=== PATIENT | female | born 1970 | race Caucasian/White ===

== ENCOUNTER 2017-02-04 23:17 | Inpatient (IN) | payer BC ==
--- NOTE | ~2017-02-04 | DS ---
Discharge Summary [facility] [address] [place]. [address] NAME: DANN TOLLIVER : 68 STATUS : DIS IN PAT#: [id number] AGE: 46 ADM/REG DATE : 02/04/17 MR#: [id number] REPORT SERV DATE: 02/15/17 DICTATED BY: GABRIEL ARGUETA DATE: 02/14/17 REPORT STATUS : Draft TRANSCRIBED BY: TAYLER DATE: 02/14/17 Data Collection from hospitalization DISCHARGE DIAGNOSES: 1. Yqc-HV-cbrbidwjn myocardial infarction. 2. Hypertension. CONSULTATIONS: None. PROCEDURES PERFORMED: 1. Cardiac catheterization and PCI, 02/07/2017. 2. CTA of the chest, 02/05/2017. MEDICATIONS: Aspirin 81 mg daily, Lipitor 80 mg at bedtime, Plavix 75 mg daily, Lopressor 25 mg twice daily, Altace 2.5 mg daily. CONDITION AT DISCHARGE: Upon discharge, she did appear to be doing well and had no complaints. DISPOSITION: She had been discharged home to continue a 4 g sodium, low cholesterol, cardiac diet with activity as discussed. She was to follow up with me in the office on 03/07/2017. 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 She had noted in the last two days when she was walking that she would get an aching in her chest. This lasted until she had stopped, in which case it would go away. She had not developed any symptoms with this and it was not prolonged until the last incident where she came to the hospital and was found to have a positive troponin. She was admitted for further evaluation and treatment. Upon admission to the hospital, she had been placed on cardiovascular heparin drip as well as acute coronary syndrome orders and coronary arteriogram orders. Following the day of admission, she was afebrile and her vital signs were stable. She did appear to be doing well and had no complaints of chest pain. Catheterization had been discussed with the patient and she was agreeable to proceed. She had undergone a CTA of the chest. On 02/06/2017, she did remain in stable condition and had no complaints of chest pain. She was continued on her current medications. On 02/07/2017, she had been taken to the cardiac brine room laborer where she did undergo the above catheterization and PCI. She did tolerate this well and was transferred to the recovery room. She did remain in stable condition and on 02/08/2017, she did state that she felt well and she had no new complaints noted. She was then discharged with the above instructions. Information collected by: Layne Alvarenga. I submit the above information as my discharge summary. RW/MODL Gabriel Argueta M.D. Discharge Summary [address] [address] NAME: DANN TOLLIVER : 68 STATUS : DIS IN PAT#: [id number] AGE: 46 ADM/REG DATE : 02/04/17 MR#: [id number] REPORT SERV DATE: 02/15/17 DICTATED BY: GABRIEL ARGUETA DATE: 02/14/17 REPORT STATUS : Draft TRANSCRIBED BY: MODL DATE: 02/14/17 / [id number] CC: Carmina Irizarry M.D.
--- NOTE | ~2017-02-04 | HP ---
History And Physical [place] [address] [facility] [place]. [address] NAME: LATOYA MADRID : 68 STATUS : ADM Saul PAT#: [id number] AGE: 46 ADM/REG DATE : 02/04/17 MR#: [id number] REPORT SERV DATE: 02/05/17 DICTATED BY: GABRIEL ARGUETA DATE: 02/05/17 REPORT STATUS : Draft TRANSCRIBED BY: MODL DATE: 02/05/17 DATE OF ADMISSION: 02/04/2017 Mrs. Latoya Madrid presents with classical angina with paz-GE-vycnjxy elevation [place]. CVD PHYSICIAN: Gabriel Argueta M.D. 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 She notes in the last two days when she was walking, she would get an aching in her chest. This lasted until she stopped, in which case it would go away. She has not developed any symptoms with this and it was not prolonged until the last incident where she came to the hospital and was found to have a positive troponin. REVIEW OF SYSTEMS: Negative for previous history of chest pain, chest discomfort, palpitations, syncope, presyncope, orthopnea, or PND. No history of neurological changes. No history of rashes or allergies. PAST MEDICAL HISTORY: Really unremarkable. She is on no regular medication. 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 She does not drink or smoke. She is fairly inactive. FAMILY HISTORY: Negative for early heart disease. PHYSICAL EXAMINATION: VITAL SIGNS: Blood pressure is 125/67, pulse is 76, and she is afebrile. GENERAL: Resting comfortably at this time, nutritional status appears adequate. EYES: PERRLA. LUNGS: No labored use of accessory muscles. Without rales or wheezes. COR: PMI is not displaced. No thrills or heaves. NL S1 and S2. No S3, murmur, click or rub. PULSES: Carotids without bruits. ABD: +BS, nontender. EXT: No cyanosis, clubbing or edema. SKIN: No petechiae. NEURO: Alert and oriented. Does not appear anxious or depressed. LABORATORY EVALUATION: EKG showed no acute changes with poor R-wave progression. Troponin is noted to be positive at 4.6. Renal function is normal at 0.6. ASSESSMENT: At this time, she presents with classical anginal symptoms. Her risk factors are modest. We will begin medical therapy and plan on doing an arteriography on Tuesday. The risks and benefits of the arteriogram had been explained. History And Physical [address] [place]. [address] NAME: LATOYA MADRID : 68 STATUS : ADM Saul PAT#: [id number] AGE: 46 ADM/REG DATE : 02/04/17 MR#: [id number] REPORT SERV DATE: 02/05/17 DICTATED BY: GABRIEL ARGUETA DATE: 02/05/17 REPORT STATUS : Draft TRANSCRIBED BY: TAYLER DATE: 02/05/17 NEMO/TAYLER Gabriel Argueta M.D. / [id number] CC: Carmina Irizarry M.D. NO PCP
[2017-02-04 21:28] LABS: BASOPHILS 0.3 %; BASOPHILS ABSOLUTE 0.04 10/3/uL (0.0-0.16); EOSINOPHILS 2.5 %; EOSINOPHILS ABSOLUTE 0.32 10/3/uL (0.0-0.53); ER CBC TAT 0 Hrs 07 Mins; HEMATOCRIT 38.5 % (36.0-48.0); HEMOGLOBIN 12.2 g/dL (12.0-16.0); IMMATURE GRANULOCYTES 0.3 %; IMMATURE GRANULOCYTES ABSOLUTE 0.04 10/3/uL (0.0-0.11); LYMPHOCYTES 32.6 %; LYMPHOCYTES ABSOLUTE 4.17 10/3/uL (0.67-4.30); MEAN CORPUS HGB CONC 31.7 g/dL (32.0-36.0); MEAN CORPUSCULAR VOLUME 75.8 fL (80-100); MEAN PLATELET VOLUME 9.2 fL (9.2-13.0); MONOCYTES 4.9 %; MONOCYTES ABSOLUTE 0.63 10/3/uL (0.21-1.20); NEUTROPHILS 59.4 %; PLATELET COUNT 448 10/3/uL (150-400); RBC DISTRIBUTION WIDTH 16.9 % (12.0-16.0); RED CELL COUNT 5.08 10/6/uL (4.0-5.6); WHITE BLOOD CELLS 12.8 10/3/uL (4.5-10.5)
[2017-02-04 21:30] LABS: MANUAL DIFF NO %
[2017-02-04 21:38] LABS: PARTIAL THROMBO TIME 26.8 SEC (22.5-37.2); PROTIME (NOT ORD) 12.8 SEC (12.0-14.5)
[2017-02-04 21:45] LABS: BUN (BLOOD UREA NITROGEN) 16 MG/DL (6-23); CHLORIDE, SERUM 104 MMOL/L (96-112); CO2 (CARBON DIOXIDE) 28 MMOL/L (24-34); CREATININE 0.83 MG/DL (0.55-1.02); GFR AFRICAN AMERICAN 97 ML/MIN (>=60); GFR NON AFRICAN AMERICAN 84 ML/MIN (>=60); GLUCOSE, SERUM 114 MG/DL (60-99); POTASSIUM, SERUM 3.8 MMOL/L (3.5-5.3); SODIUM, SERUM 138 MMOL/L (135-148)
[2017-02-04 21:49] LABS: CHEST PAIN PROFILE TAT 0 Hrs 28 Mins; TROPONIN I 1.68 NG/ML (<0.05)
[2017-02-04 23:56] LABS: TROPONIN I 1.7 NG/ML (<0.05)
[2017-02-05] MEDS ORDERED: T PO (01:48)
[2017-02-05 07:43] LABS: BASOPHILS 0.2 %; BASOPHILS ABSOLUTE 0.03 10/3/uL (0.0-0.16); EOSINOPHILS ABSOLUTE 0.14 10/3/uL (0.0-0.53); IMMATURE GRANULOCYTES 0.3 %; IMMATURE GRANULOCYTES ABSOLUTE 0.04 10/3/uL (0.0-0.11); LYMPHOCYTES 26.3 %; LYMPHOCYTES ABSOLUTE 3.61 10/3/uL (0.67-4.30); MEAN CORPUS HGB CONC 32.4 g/dL (32.0-36.0); MEAN CORPUSCULAR HEMOGLOB 23.9 pg (26.0-34.0); MEAN CORPUSCULAR VOLUME 73.9 fL (80-100); MEAN PLATELET VOLUME 9.1 fL (9.2-13.0); MONOCYTES 4.9 %; MONOCYTES ABSOLUTE 0.68 10/3/uL (0.21-1.20); NEUTROPHILS 67.3 %; NEUTROPHILS ABSOLUTE 9.24 10/3/uL (2.02-8.40); PLATELET COUNT 368 10/3/uL (150-400); RBC DISTRIBUTION WIDTH 16.9 % (12.0-16.0); WHITE BLOOD CELLS 13.7 10/3/uL (4.5-10.5)
[2017-02-05 07:45] LABS: MANUAL DIFF NO %
[2017-02-05 07:57] LABS: INTERNATIONAL NORMAL RATI 1.2 UNITS (-); PROTIME (NOT ORD) 14.6 SEC (12.0-14.5)
[2017-02-05 07:58] LABS: PARTIAL THROMBO TIME 42.7 SEC (22.5-37.2)
[2017-02-05 08:04] LABS: CALCIUM, SERUM 8.9 MG/DL (8.5-10.4); CHLORIDE, SERUM 107 MMOL/L (96-112); CHOL/HDL RATIO(NOT ORDER) 4.3 (0-5); CHOLESTEROL 226 MG/DL (< 200); CO2 (CARBON DIOXIDE) 24 MMOL/L (24-34); CREATININE 0.57 MG/DL (0.55-1.02); GFR AFRICAN AMERICAN 128 ML/MIN (>=60); GFR NON AFRICAN AMERICAN 110 ML/MIN (>=60); GLUCOSE, SERUM 99 MG/DL (60-99); HDL CHOLESTEROL 52 MG/DL (> 49); LDL CHOLESTEROL 142 MG/DL (< 130); NON-HDL CHOLESTEROL 174 MG/DL (< 160); POTASSIUM, SERUM 3.8 MMOL/L (3.5-5.3); SGPT(ALT) 28 U/L (5-65); SODIUM, SERUM 139 MMOL/L (135-148); TRIGLYCERIDE 162 MG/DL (< 150)
[2017-02-05 08:05] LABS: BUN (BLOOD UREA NITROGEN) 12 MG/DL (6-23); TROPONIN I 4.63 NG/ML (<0.05)
[2017-02-06 05:20] LABS: BASOPHILS 0.4 %; BASOPHILS ABSOLUTE 0.05 10/3/uL (0.0-0.16); EOSINOPHILS 2.2 %; HEMATOCRIT 36.1 % (36.0-48.0); HEMOGLOBIN 11.6 g/dL (12.0-16.0); IMMATURE GRANULOCYTES 0.2 %; IMMATURE GRANULOCYTES ABSOLUTE 0.03 10/3/uL (0.0-0.11); LYMPHOCYTES 34.2 %; LYMPHOCYTES ABSOLUTE 4.59 10/3/uL (0.67-4.30); MEAN CORPUS HGB CONC 32.1 g/dL (32.0-36.0); MEAN CORPUSCULAR HEMOGLOB 24.3 pg (26.0-34.0); MEAN CORPUSCULAR VOLUME 75.7 fL (80-100); MEAN PLATELET VOLUME 9.2 fL (9.2-13.0); MONOCYTES 6.3 %; MONOCYTES ABSOLUTE 0.85 10/3/uL (0.21-1.20); NEUTROPHILS 56.7 %; PLATELET COUNT 380 10/3/uL (150-400); RBC DISTRIBUTION WIDTH 17.1 % (12.0-16.0); RED CELL COUNT 4.77 10/6/uL (4.0-5.6); WHITE BLOOD CELLS 13.4 10/3/uL (4.5-10.5)
[2017-02-06 05:21] LABS: MANUAL DIFF NO %
[2017-02-07 07:19] LABS: BASOPHILS 0.4 %; BASOPHILS ABSOLUTE 0.05 10/3/uL (0.0-0.16); EOSINOPHILS 2.3 %; HEMATOCRIT 36.7 % (36.0-48.0); HEMOGLOBIN 11.8 g/dL (12.0-16.0); IMMATURE GRANULOCYTES 0.3 %; IMMATURE GRANULOCYTES ABSOLUTE 0.04 10/3/uL (0.0-0.11); LYMPHOCYTES 27.1 %; LYMPHOCYTES ABSOLUTE 3.48 10/3/uL (0.67-4.30); MEAN CORPUS HGB CONC 32.2 g/dL (32.0-36.0); MEAN CORPUSCULAR HEMOGLOB 24.3 pg (26.0-34.0); MEAN CORPUSCULAR VOLUME 75.5 fL (80-100); MEAN PLATELET VOLUME 9.1 fL (9.2-13.0); MONOCYTES ABSOLUTE 1.03 10/3/uL (0.21-1.20); NEUTROPHILS 61.9 %; NEUTROPHILS ABSOLUTE 7.95 10/3/uL (2.02-8.40); PLATELET COUNT 354 10/3/uL (150-400); RBC DISTRIBUTION WIDTH 17.3 % (12.0-16.0); RED CELL COUNT 4.86 10/6/uL (4.0-5.6); WHITE BLOOD CELLS 12.9 10/3/uL (4.5-10.5)
[2017-02-07 07:21] LABS: MANUAL DIFF NO %
[2017-02-07 07:33] LABS: BUN (BLOOD UREA NITROGEN) 12 MG/DL (6-23); CALCIUM, SERUM 8.8 MG/DL (8.5-10.4); CHLORIDE, SERUM 106 MMOL/L (96-112); CHOL/HDL RATIO(NOT ORDER) 3.8 (0-5); CHOLESTEROL 196 MG/DL (< 200); CO2 (CARBON DIOXIDE) 24 MMOL/L (24-34); CREATININE 0.69 MG/DL (0.55-1.02); GFR AFRICAN AMERICAN 120 ML/MIN (>=60); GFR NON AFRICAN AMERICAN 104 ML/MIN (>=60); GLUCOSE, SERUM 91 MG/DL (60-99); HDL CHOLESTEROL 51 MG/DL (> 49); LDL CHOLESTEROL 119 MG/DL (< 130); NON-HDL CHOLESTEROL 145 MG/DL (< 160); SODIUM, SERUM 139 MMOL/L (135-148); TRIGLYCERIDE 130 MG/DL (< 150)
[2017-02-08] MEDS ORDERED: ALTA2.5 PO (08:18)
[2017-02-08] MEDS ORDERED: LOP25 PO (08:19)
[2017-02-08] MEDS ORDERED: NTG150 SL (08:19)
[2017-02-08] MEDS ORDERED: LIPITOR40 PO (08:20)
[2017-02-08] MEDS ORDERED: PLAVIX PO (08:20)
== END 2017-02-08 09:50 | disposition home or self-care (01) | DRG 247 ==
LOC: ER 23:17 → 6NO 23:59 → SSU1 02-07 14:22
PROVIDERS: Emergency Medicine; Internal Medicine Cardiovascular Disease
PROC: 027134Z Dilation of Coronary Artery, Two Arteries with Drug-eluting Intraluminal Device, Percutaneous Approach (ICD-10-PCS; principal; 2017-02-07)
PROC: 4A023N7 Measurement of Cardiac Sampling and Pressure, Left Heart, Percutaneous Approach (ICD-10-PCS; 2017-02-07)
PROC: B2111ZZ Fluoroscopy of Multiple Coronary Arteries using Low Osmolar Contrast (ICD-10-PCS; 2017-02-07)
PROC: B2151ZZ Fluoroscopy of Left Heart using Low Osmolar Contrast (ICD-10-PCS; 2017-02-07)
DX: I21.4 Non-ST elevation (NSTEMI) myocardial infarction (principal); I10 Essential (primary) hypertension; I25.10 Atherosclerotic heart disease of native coronary artery without angina pectoris
CPT/HCPCS: 71020; 71275; 80048; 80061; 82550; 83735; 83880; 84460; 84484; 84703; 85025; 85379; 85610; 85730; 93005; 93458; 96372; 96374; 96375; 99152; 99153; 99291; A9270-GY; C1713; C1725; C1757; C1760; C1769; C1874; C1887; C9600; G0378; J0583; J2250; J3010; Q9967